=== PATIENT | male | born 1950 | race Caucasian/White ===

== ENCOUNTER 2017-10-16 02:08 | Emergency (ER) | payer MEDICAID ==
[~2017-10-16] VITALS: Ht 165.1 cm; Wt 73.0 kg
[2017-10-16 02:25] VITALS: BP 147/70
[2017-10-16 03:41] LABS: CHLORIDE 89 mEq/L (98-107)
[2017-10-16 03:42] LABS: HEMATOCRIT 32.3 % (42.0-52.0); HEMOGLOBIN 10.8 g/dL (14.0-18.0); MEAN CORPUSCULAR VOLUME 92.1 fL (80.0-94.0); PLATELET 254 x1000/uL (130-400); RED BLOOD CELL COUNT 3.51 mill/uL (4.7-6.1); RED CELL DISTRIBUTION WIDTH 14.4 % (11.6-14.6)
[2017-10-16 05:29] LABS: CLARITY URINE TURBID (CLEAR); COLOR URINE RED (YELLOW); KETONES URINE NEGATIVE (NEGATIVE); LEUKOCYTE ESTERASE URINE 3+ (NEGATIVE); NITRITE URINE POSITIVE (NEGATIVE); OCCULT BLOOD URINE 2+ (NEGATIVE); PH URINE 8.5 (4.5-8.0); PROTEIN URINE 3+ (NEGATIVE); SPECIFIC GRAVITY URINE 1.013 (1.005-1.030); UROBILINOGEN URINE 0.2 E.U./dL (0.2-1.0)
[2017-10-16] MEDS ORDERED: LOSA50TA20 MT (05:29)
[2017-10-16] MEDS ORDERED: NEPVIT MT (05:29)
[2017-10-16] MEDS ORDERED: FOS500 PO (05:29)
[2017-10-16] MEDS ORDERED: [UNRECOGNIZED DRUG - OTHER] (05:29)
[2017-10-16] MEDS ORDERED: CEPHALEXIN 500MG CAPSULE PO ONE (06:45)
== END 2017-10-16 08:43 | disposition home or self-care (01) ==
LOC: ER 02:08
DX: R31.0 Gross hematuria (principal); N39.0 Urinary tract infection, site not specified; E11.9 Type 2 diabetes mellitus without complications; Z99.2 Dependence on renal dialysis; N28.9 Disorder of kidney and ureter, unspecified
CPT/HCPCS: 36415; 51702; 80053; 81003; 85027; 86850; 86900; 87086; 99284; A4315